=== PATIENT | female | born 1980 | race Caucasian/White ===

== ENCOUNTER 2021-08-08 17:27 | Emergency (ER) | payer OTHER ==
[2021-08-08 18:25] LABS: BASOPHIL 0.2 % (0-2); EOSINOPHIL 1.1 % (0-5); HCT 40.9 % (37.0-47.0); HGB 13.2 g/dl (12.5-16.0); LYMPHOCYTE 30.5 % (15-48); MCHC 32.3 g/dL (32.0-36.0); MCV 83.8 fL (78.0-100.0); MONOCYTE 7.5 % (0-12); MPV 9.6 fL (6.0-9.5); NEUTROPHIL 60.3 % (41-80); NRBC 0; PLT 276 K/uL (150-400); RBC 4.88 M/uL (4.20-5.40); RDW 12.8 % (11.5-14.0); WBC 5.6 K/uL (4.0-10.5)
[2021-08-08 18:36] LABS: INR 0.94 (0.9-1.2); PTT 26.5 SECONDS (24.4-34.7)
[2021-08-08 18:45] LABS: ALBUMIN 3.5 g/dL (3.4-5.0); BILIRUBIN - TOTAL 0.2 mg/dL (0.2-1.0); BUN/CREAT RATIO (CALC) 15.7 RATIO; CREATININE 0.7 mg/dL (0.51-0.95); GLOBULIN (CALCULATION) 3.4 g/dL; POTASSIUM 3.9 mmol/L (3.5-5.1); TOTAL PROTEIN 6.9 g/dL (6.4-8.2)
== END 2021-08-08 21:06 | disposition home or self-care (01) ==
LOC: FER 17:27
PROVIDERS: Emergency Medicine
DX: R07.89 Other chest pain (principal)
CPT/HCPCS: 36415; 71045; 80053; 84484; 85025; 85610; 85730; 93005